=== PATIENT | male | born 1995 | race Caucasian/White ===

== ENCOUNTER 2017-11-13 20:38 | Emergency (ER) | payer SELFPAY ==
[2017-11-13] MEDS: IBUPROFEN 600 MG TABLET. PO ONE (22:30)
[2017-11-13] MEDS: HYDROcodone/APAP 5/325MG 1 TAB TABLET PO ONE (22:30)
[2017-11-13] MEDS ORDERED: IBUP600T16 PO (22:31)
[2017-11-13] MEDS ORDERED: HYDR-971 PO (22:31)
--- NOTE | 2017-11-13 22:31 | PHYS DOC ---
Adult General Chief Complaint Chief Complaint: FOOT INJURY PAIN HPI HPI Patient is a [age] year old [sex] who presents with [] Review of Systems Review of Systems Constitutional: Denies fever or chills [] Eyes: Denies change in visual acuity, redness, or eye pain [] HENT: Denies nasal congestion or sore throat [] Respiratory: Denies cough or shortness of breath [] Cardiovascular: No additional information not addressed in HPI [] GI: Denies abdominal pain, nausea, vomiting, bloody stools or diarrhea [] : Denies dysuria or hematuria [] Musculoskeletal: Denies back pain or joint pain [] Integument: Denies rash or skin lesions [] Neurologic: Denies headache, focal weakness or sensory changes [] Endocrine: Denies polyuria or polydipsia [] All other systems were reviewed and found to be within normal limits, except as documented in this note. Current Medications Current Medications Current Medications Medications (Trade) Dose Ordered Sig/Tegan Start Time Stop Time Status Last Admin Dose Admin Acetaminophen/ Hydrocodone Bitart (Lortab 5/325) 1 tab 1X ONCE 11/13/17 22:30 11/13/17 22:31 Ibuprofen (Motrin) 600 mg 1X ONCE 11/13/17 22:30 11/13/17 22:31 Allergies Allergies Allergies Coded Allergies Type Severity Reaction Last Updated Verified No Known Drug Allergies 11/13/17 No Physical Exam Physical Exam Constitutional: Well developed, well nourished, no acute distress, non-toxic appearance. [] HENT: Normocephalic, atraumatic, bilateral external ears normal, oropharynx moist, no oral exudates, nose normal. [] Eyes: PERRLA, EOMI, conjunctiva normal, no discharge. [] Neck: Normal range of motion, no tenderness, supple, no stridor. [] Cardiovascular:Heart rate regular rhythm, no murmur [] Lungs & Thorax: Bilateral breath sounds clear to auscultation [] Abdomen: Bowel sounds normal, soft, no tenderness, no masses, no pulsatile masses. [] Skin: Warm, dry, no erythema, no rash. [] Back: No tenderness, no CVA tenderness. [] Extremities: No tenderness, no cyanosis, no clubbing, ROM intact, no edema. [] Neurologic: Alert and oriented X 3, normal motor function, normal sensory function, no focal deficits noted. [] Psychologic: Affect normal, judgement normal, mood normal. [] EKG EKG [] Radiology/Procedures Radiology/Procedures [] Course & Med Decision Making Course & Med Decision Making Pertinent Labs and Imaging studies reviewed. (See chart for details) [] Dragon Disclaimer Dragon Disclaimer This electronic medical record was generated, in whole or in part, using a voice recognition dictation system. Departure Departure: Impression: Primary Impression: Fracture of base of fifth metatarsal bone of right foot Disposition: HOME, SELF-CARE Condition: IMPROVED Referrals: PCP,DORCAS (PCP) [facility] Patient Instructions: Crutch Use, Foot Fracture, Metatarsal Fracture with Rehab -[facility] Additional Instructions: You have a fracture at the base of her fifth metatarsal bone. Please call and make an appointment to see from the [facility] orthopedics at [phone]. Please keep your hard sole shoe on at all times while you are not sleeping. No weightbearing. Use crutches. Scripts Hydrocodone Bit/Acetaminophen (NORCO 5-325 TABLET) 1 Each Tablet 1 TAB PO PRN Q6HRS Y for PAIN, #12 TAB 0 Refills Prov: BRENDA ROD MD 11/13/17 Ibuprofen (IBUPROFEN) 600 Mg Tablet 600 MG PO QID Y for PAIN, #20 Prov: BRENDA ROD MD 11/13/17 BRENDA ROD MD Nov 13, 2017 22:31
--- NOTE | 2017-11-14 08:11 | RAD ---
Indication: Football injury. Technique: 3 views of the right foot Comparison: None Findings: There is a complete nondisplaced fracture of the base of the fifth metatarsal ( pseudo-Wilcox fracture) with extension to the articular surface. Impression: As above.
== END 2017-11-13 22:52 | disposition home or self-care (01) ==
LOC: ER 20:38
DX: S92.351A Displaced fracture of fifth metatarsal bone, right foot, initial encounter for closed fracture (principal); X58.XXXA Exposure to other specified factors, initial encounter; Y93.89 Activity, other specified; Y99.8 Other external cause status; Y92.89 Other specified places as the place of occurrence of the external cause
CPT/HCPCS: 73630; 99284

== ENCOUNTER 2017-11-28 15:11 | Emergency (ER) | payer OTHER ==
[~2017-11-28] VITALS: Ht 182.9 cm; Wt 79.4 kg
[~2017-11-28 15:11] MED LIST: HYDR-971 PO; IBUP600T16 PO
[2017-11-28] MEDS ORDERED: IBUPROFEN 800 MG TABLET. PO ONE (16:28)
[2017-11-28] MEDS ORDERED: IBUPROFEN 600 MG TABLET. PO ONE (16:30)
[2017-11-28] MEDS ORDERED: HYDROcodone/APAP 5/325MG 1 TAB TABLET PO ONE (16:30)
--- NOTE | 2017-11-28 16:30 | RAD ---
Right foot, 3 views, 11/28/2017: History: Foot pain, injury Comparison is made to a study from 11/13/2017. Again noted is a transverse fracture of the base of the fifth metatarsal. There has been mild bony resorption at the fracture site. No bridging callus is evident. No new fracture or dislocation is identified. IMPRESSION: Subacute fracture of the base of the right fifth metatarsal. Right ankle, 3 views, 11/28/2017: No new fracture or dislocation is identified. IMPRESSION: No acute right ankle abnormality is detected.
[2017-11-28] MEDS ORDERED: HYDR-971 PO (16:37)
--- NOTE | 2017-11-28 16:37 | PHYS DOC ---
Past History Past Medical History: No Pertinent History Past Surgical History: No Surgical History Alcohol Use: None Drug Use: None Adult General Chief Complaint Chief Complaint: LOWER EXT PAIN HPI HPI Patient is a 22-year-old male presenting to the emergency department for evaluation of right foot pain status post reinjury yesterday when he slipped in some mud on crutches and inverted his right foot now it is more painful. He has bruising to his toes which is old however he has some bruising to his right lateral foot that he says is new. He was diagnosed with a fifth metatarsal fracture several weeks ago but was unable to follow up as he said he cannot afford to see anyone. Patient denies any fevers chills nausea vomiting weakness numbness tingling. Review of Systems Review of Systems Constitutional: Denies fever or chills [] Musculoskeletal: Positive foot joint pain [] Integument: Denies open wounds or abrasions Neurologic: Denies headache, focal weakness or sensory changes [] All other systems were reviewed and found to be within normal limits, except as documented in this note. Current Medications Current Medications Current Medications Medications (Trade) Dose Ordered Sig/Tegan Start Time Stop Time Status Last Admin Dose Admin Acetaminophen/ Hydrocodone Bitart (Lortab 5/325) 2 tab 1X ONCE 11/28/17 16:30 11/28/17 16:31 DC 11/28/17 16:30 2 TAB Ibuprofen (Motrin) 800 mg STK-MED ONCE 11/28/17 16:28 11/28/17 16:29 DC Allergies Allergies Allergies Coded Allergies Type Severity Reaction Last Updated Verified No Known Drug Allergies 11/13/17 No Physical Exam Physical Exam Constitutional: Well developed, well nourished, no acute distress, non-toxic appearance. [] Extremities: Right foot with swelling at the fifth metatarsal and he has some pain on his medial malleolus as well. No proximal tib-fib tenderness. Neurologic: Alert and oriented X 3, normal motor function, normal sensory function, no focal deficits noted. [] Current Patient Data Vital Signs Vital Signs Date Time Temp Pulse Resp B/P (MAP) Pulse Ox O2 Delivery O2 Flow Rate FiO2 11/28/17 16:30 Room Air 11/28/17 15:53 97.6 87 22 98 EKG EKG [] Radiology/Procedures Radiology/Procedures Right foot, 3 views, 11/28/2017: History: Foot pain, injury Comparison is made to a study from 11/13/2017. Again noted is a transverse fracture of the base of the fifth metatarsal. There has been mild bony resorption at the fracture site. No bridging callus is evident. No new fracture or dislocation is identified. IMPRESSION: Subacute fracture of the base of the right fifth metatarsal. Right ankle, 3 views, 11/28/2017: No new fracture or dislocation is identified. IMPRESSION: No acute right ankle abnormality is detected. DICTATED AND SIGNED BY: EDELMIRA IRVIN MD DATE: 11/28/17 1620 Course & Med Decision Making Course & Med Decision Making Patient has no new findings on his x-ray but I recommended that he follow with someone as this does require surgery much of the time. Patient verbalized understanding of the discharge is stable condition. Dragon Disclaimer Dragon Disclaimer This electronic medical record was generated, in whole or in part, using a voice recognition dictation system. Departure Departure: Impression: Primary Impression: Fracture of 5th metatarsal Disposition: HOME, SELF-CARE Condition: STABLE Referrals: PCP,NO (PCP) Patient Instructions: Metatarsal Fracture, Undisplaced Scripts Hydrocodone Bit/Acetaminophen (NORCO 5-325 TABLET) 1 Each Tablet 1 TAB PO PRN Q6HRS Y for PAIN, #10 TAB 0 Refills Prov: OLEG VENEGAS DO 11/28/17 Problem Qualifiers Primary Impression: Fracture of 5th metatarsal Encounter type: initial encounter Fracture type: closed Fracture alignment : nondisplaced Laterality: right Qualified Codes: S92.354A - Nondisplaced fracture of fifth metatarsal bone, right foot, initial encounter for closed fracture OLEG VENEGAS DO Nov 28, 2017 16:37
[2017-11-28 16:42] VITALS: BP 134/61
== END 2017-11-28 16:40 | disposition home or self-care (01) ==
LOC: ER 15:11
DX: S92.351A Displaced fracture of fifth metatarsal bone, right foot, initial encounter for closed fracture (principal); W18.49XA Other slipping, tripping and stumbling without falling, initial encounter; Y93.89 Activity, other specified; Y99.8 Other external cause status; Y92.89 Other specified places as the place of occurrence of the external cause
CPT/HCPCS: 73610; 73630; 99284

== ENCOUNTER 2018-10-09 17:30 | Emergency (ER) | payer SELFPAY ==
[~2018-10-09] VITALS: Ht 190.5 cm; Wt 95.3 kg
[2018-10-09 17:40] VITALS: BP 134/82
[2018-10-09] MEDS ORDERED: NAPR-683 PO (18:29)
[2018-10-09] MEDS ORDERED: CYCL-331 PO (18:29)
--- NOTE | 2018-10-09 18:30 | PHYS DOC ---
Past History Past Medical History: No Pertinent History Past Surgical History: Tonsillectomy Alcohol Use: Occasionally Drug Use: None Adult General Chief Complaint Chief Complaint: BACK PAIN OR INJURY HPI HPI Patient is a 23 year old male who presents with complaint of right shoulder and back pain. Patient states that he was lifting a heavy object at work when he felt a pop in his right shoulder. The patient states that he has been having tightness along the back of his shoulder in the distribution of his trapezius muscle. Patient states that the pain worsens when he tries to move his right upper extremity. Denies any fall or severe trauma. Denies loss of feeling to the right hand. Rates pain as severe. Has not taken any medications for symptoms. Patient states that he has tried ice packs to the affected area. Review of Systems Review of Systems Constitutional: Denies fever or chills [] Eyes: Denies change in visual acuity, redness, or eye pain [] HENT: Denies nasal congestion or sore throat [] Respiratory: Denies cough or shortness of breath [] Cardiovascular: Denies chest pain or edema[] GI: Denies abdominal pain, nausea, vomiting, bloody stools or diarrhea [] : Denies dysuria or hematuria [] Musculoskeletal: Right shoulder and back pain[] Integument: Denies rash or skin lesions [] Neurologic: Denies headache, focal weakness or sensory changes [] All other systems were reviewed and found to be within normal limits, except as documented in this note. Allergies Allergies Allergies Coded Allergies Type Severity Reaction Last Updated Verified No Known Drug Allergies 11/13/17 No Physical Exam Physical Exam Constitutional: Well developed, well nourished, appears in [id number] discomfort, non-toxic appearance. [] HENT: Normocephalic, atraumatic, bilateral external ears normal, oropharynx moist, no oral exudates, nose normal. [] Eyes: PERRLA, EOMI, conjunctiva normal, no discharge. [] Neck: Normal range of motion, no tenderness, supple, no stridor. [] Cardiovascular:Heart rate regular rhythm, no murmur [] Lungs & Thorax: Bilateral breath sounds clear to auscultation [] Abdomen: Bowel sounds normal, soft, no tenderness, no masses, no pulsatile masses. [] Skin: Warm, dry, no erythema, no rash. [] Back: No tenderness, no CVA tenderness. [] Extremities: Right posterior shoulder tenderness along distribution of right trapezius muscle, no deformity or bony tenderness to the right shoulder, no cyanosis, no clubbing, ROM in right shoulder limited secondary pain, neurovascularly intact distal to injury. [] Neurologic: Alert and oriented X 3, normal motor function, normal sensory function, no focal deficits noted. [] Current Patient Data Vital Signs Vital Signs Date Time Temp Pulse Resp B/P (MAP) Pulse Ox O2 Delivery O2 Flow Rate FiO2 10/09/18 17:40 98.4 89 22 96 Room Air Lab Results None performed EKG EKG Not performed[] Radiology/Procedures Radiology/Procedures Not performed[] Course & Med Decision Making Course & Med Decision Making Pertinent Labs and Imaging studies reviewed. (See chart for details) Patient's injury consistent with right trapezius muscle strain. Patient treated with Naprosyn and Flexeril. The patient was instructed to follow-up with primary doctor in the next 5 days for reevaluation. Advised no heavy lifting greater than 5 pounds with right upper extremity until symptoms have improved. Will continue on outpatient treatment with Flexeril and Naprosyn. Advised return to emergency department for any worsening symptoms. Patient was understanding and agreement with treatment plan. Dragon Disclaimer Dragon Disclaimer This electronic medical record was generated, in whole or in part, using a voice recognition dictation system. Departure Departure: Impression: Primary Impression: Strain of right trapezius muscle Disposition: HOME, SELF-CARE Condition: IMPROVED Referrals: PCP,DORCAS (PCP) Patient Instructions: Muscle Strain Additional Instructions: Follow-up with a primary doctor in the next 5 days for reevaluation. Follow up with a primary doctor in the next 5 days for reevaluation. Return to the emergency department for any worsening symptoms. Scripts Naproxen (NAPROSYN) 500 Mg Tablet 1 TAB PO BID, #20 TAB 0 Refills Prov: CARROLL SCHWARTZ MD 10/09/18 Cyclobenzaprine Hcl (CYCLOBENZAPRINE HCL) 10 Mg Tablet 1 TAB PO TID PRN for MUSCLE PAIN, #30 TAB Prov: CARROLL SCHWARTZ MD 10/09/18 Problem Qualifiers Primary Impression: Strain of right trapezius muscle Encounter type: initial encounter Qualified Codes: S46.811A - Strain of other muscles, fascia and tendons at shoulder and upper arm level, right arm, initial encounter CARROLL SCHWARTZ MD Oct 09, 2018 18:30
[2018-10-09] MEDS ORDERED: CYCLOBENZAPRINE 10 MG TABLET. PO ONE (18:45)
[2018-10-09] MEDS ORDERED: NAPROXEN 500 MG TABLET PO ONE (18:45)
== END 2018-10-09 18:40 | disposition home or self-care (01) ==
LOC: ER 17:30
DX: S46.811A Strain of other muscles, fascia and tendons at shoulder and upper arm level, right arm, initial encounter (principal); M54.89 Other dorsalgia; X50.0XXA Overexertion from strenuous movement or load, initial encounter; Y93.89 Activity, other specified; Y92.89 Other specified places as the place of occurrence of the external cause; Y99.8 Other external cause status
CPT/HCPCS: 99283

== ENCOUNTER 2020-08-11 20:38 | Emergency (ER) | payer SELFPAY ==
[~2020-08-11] VITALS: Ht 190.5 cm; Wt 90.9 kg
[~2020-08-11 20:38] MED LIST changes: +CYCL-331 PO; +HYDR-3165 PO; -HYDR-971 PO; +NAPR-683 PO
--- NOTE | 2020-08-11 21:03 | PHYS DOC ---
Past History Past Medical History: No Pertinent History Past Surgical History: Tonsillectomy Alcohol Use: Occasionally Drug Use: None General Adult EDM: Chief Complaint: SUICIDAL IDEATION HPI: HPI: The history was obtained from the patient. Patient is a 25-year-old male with no reported PMH who presents with a chief complaint of suicidal ideation. Patient states he has felt intermittently suicidal since he was 16 years old. He states that this evening his caught him sitting in his car with a gun .. He states he does this intermittently but is never followed through. He denies any acute stressors recently does states that he has felt depressed. He states that he has no homicidal ideation. Denies auditory visual hallucinations. Denies any hospitalization for mental health issues in the past. Denies any drug or alcohol abuse. Denies any physical related complaints. Denies any ingestions this evening. States that he came here because his called his mother who encouraged him to report to the emergency department. No other complaints. Review of Systems: Review of Systems: Constitutional: Denies fever or chills Eyes: Denies change in visual acuity HENT: Denies nasal congestion or sore throat Respiratory: Denies cough or shortness of breath Cardiovascular: Denies chest pain or edema GI: Denies abdominal pain, nausea, vomiting, bloody stools or diarrhea : Denies dysuria Musculoskeletal: Denies back pain or joint pain Integument: Denies rash Neurologic: Denies headache, focal weakness or sensory changes Endocrine: Denies polyuria or polydipsia Lymphatic: Denies swollen glands Psychiatric: Positive for depression Heart Score: Risk Factors: Risk Factors: DM, Current or recent (<one month) smoker, HTN, HLP, family history of CAD, obesity. Risk Scores: Score 0 - 3: 2.5% MACE over next 6 weeks - Discharge Home Score 4 - 6: 20.3% MACE over next 6 weeks - Admit for Clinical Observation Score 7 - 10: 72.7% MACE over next 6 weeks - Early Invasive Strategies Allergies: Allergies: Allergies Coded Allergies Type Severity Reaction Last Updated Verified No Known Drug Allergies 11/13/17 No Physical Exam: PE: Constitutional: Well developed, well nourished, no acute distress, non-toxic appearance. [] HENT: Normocephalic, atraumatic, bilateral external ears normal, oropharynx moist, no oral exudates, nose normal. [] Eyes: PERRLA, EOMI, conjunctiva normal, no discharge. [] Neck: Normal range of motion, no tenderness, supple, no stridor. [] Cardiovascular:Heart rate regular rhythm, no murmur [] Lungs & Thorax: Bilateral breath sounds clear to auscultation [] Abdomen: Bowel sounds normal, soft, no tenderness, no masses, no pulsatile masses. [] Skin: Warm, dry, no erythema, no rash. [] Back: No tenderness, no CVA tenderness. [] Extremities: No tenderness, no cyanosis, no clubbing, ROM intact, no edema. [] Neurologic: A alert with intact cognitive function. No aphasia, dysarthria, or neglect. GCS 15. Pupils 3 mm briskly reactive b/l. No APD present. Cranial nerves 2-12 grossly intact; no facial asymmetry present, tongue midline, shoulder shrugging strength intact. Strength 5/5 and symmetric throughout. Light touch sensation intact throughout. Cerebellar testing appropriate without evidence of dysdiadochokinesia. DTR's 2+ in all 4 extremities. Negative pronator drift bilaterally. Gait normal Psychologic: Tearful and depressed affect. Current Patient Data: Labs: Laboratory Tests Test 08/11/20 21:15 08/11/20 23:23 White Blood Count 8.4 x10^3/uL Red Blood Count 5.09 x10^6/uL Hemoglobin 15.5 g/dL Hematocrit 45.3 % Mean Corpuscular Volume 89 fL Mean Corpuscular Hemoglobin 30 pg Mean Corpuscular Hemoglobin Concent 34 g/dL Red Cell Distribution Width 13.3 % Platelet Count 211 x10^3/uL Neutrophils (%) (Auto) 70 % Lymphocytes (%) (Auto) 22 % Monocytes (%) (Auto) 6 % Eosinophils (%) (Auto) 1 % Basophils (%) (Auto) 1 % Neutrophils # (Auto) 5.9 x10^3uL Lymphocytes # (Auto) 1.8 x10^3/uL Monocytes # (Auto) 0.5 x10^3/uL Eosinophils # (Auto) 0.1 x10^3/uL Basophils # (Auto) 0.1 x10^3/uL Sodium Level 140 mmol/L Potassium Level 3.6 mmol/L Chloride Level 105 mmol/L Carbon Dioxide Level 25 mmol/L Anion Gap 10 Blood Urea Nitrogen 13 mg/dL Creatinine 1.1 mg/dL Estimated GFR (Cockcroft-Gault) 83.0 BUN/Creatinine Ratio 12 Glucose Level 89 mg/dL Calcium Level 9.5 mg/dL Total Bilirubin 0.7 mg/dL Aspartate Amino Transf (AST/SGOT) 22 U/L Alanine Aminotransferase (ALT/SGPT) 39 U/L Alkaline Phosphatase 68 U/L Total Protein 7.5 g/dL Albumin 4.6 g/dL Albumin/Globulin Ratio 1.6 Acetaminophen Level < 2.0 mcg/mL Acetaminophen Last Dose Date None Acetaminophen Last Dose Time None Ethyl Alcohol Level < 10 mg/dL Urine Collection Type Unknown Urine Color Yellow Urine Clarity Clear Urine pH 5.5 Urine Specific [place] >=1.030 Urine Protein Neg Urine Glucose (UA) Neg mg/dL Urine Ketones (Stick) 40 mg/dL Urine Blood Neg Urine Nitrite Neg Urine Bilirubin Neg Urine Urobilinogen Dipstick 0.2 mg/dL Urine Leukocyte Esterase Neg Urine RBC 0 /HPF Urine WBC Occ /HPF Urine Squamous Epithelial Cells None /LPF Urine Bacteria 0 /HPF Urine Mucus Mod /LPF Urine Opiates Screen Neg Urine Methadone Screen Neg Urine Barbiturates Neg Urine Phencyclidine Screen Neg Urine Amphetamine/Methamphetamine Neg Urine Benzodiazepines Screen Neg Urine Cocaine Screen Neg Urine Cannabinoids Screen Pos Urine Ethyl Alcohol Neg Current Medications Medications (Trade) Dose Ordered Sig/Tegan Route PRN Reason Start Time Stop Time Status Last Admin Dose Admin Lorazepam (Ativan) 2 mg 1X ONCE PO 08/11/20 21:15 08/11/20 21:16 DC Sodium Chloride 1,000 ml @ 1,000 mls/hr 1X ONCE IV 08/11/20 22:00 08/11/20 22:59 DC Lorazepam (Ativan) 1 mg 1X ONCE PO 08/11/20 22:00 08/11/20 22:01 DC Vital Signs: Vital Signs Date Time Temp Pulse Resp B/P (MAP) Pulse Ox O2 Delivery O2 Flow Rate FiO2 08/11/20 20:40 97.5 66 18 126/86 (99) 97 Room Air EKG: EKG: [] EKG consistent with normal sinus rhythm. Ventricular rate of 51 bpm. [place] normal. Intervals normal. Flattened T wave in lead III. No acute ischemic changes noted. Radiology/Procedures: Radiology/Procedures: [] Course & Med Decision Making: Course & Med Decision Making Pertinent Labs and Imaging studies reviewed. (See chart for details) [] Patient is a 25-year-old male who presents with chief complaint of suicidal ideation and depressive thoughts. Upon arrival the patient was quite tearful and depressed. Basic work-up was obtained was unremarkable. Patient was evaluated by guidance center regarding his suicidal ideation. After lengthy conversation they do feel the patient is appropriate for discharge home with safety planning. The patient's mother did go to his house and remove all firearms. The patient's mother and will watch him closely as well. He does have outpatient counseling services arranged for tomorrow. Also multiple individuals with a [facility] will check on him tomorrow. Repeat examination is no longer tearful. He was cooperative during the interview per the guidance counselor. I do feel it is reasonable to discharge patient home with safety planning and close monitoring. Patient tells me he no longer has thoughts with harming self and states that he does have reasons to live for including his family and daughter. Return precautions discussed and understood. Stable for discharge home. Aubrie Disclaimer: Aubrie Disclaimer: This electronic medical record was generated, in whole or in part, using a voice recognition dictation system. Departure Departure: Impression: Primary Impression: Suicidal ideation Disposition: HOME/RESIDENCE PRIOR TO ADM Condition: STABLE Referrals: PCP,NO (PCP) Patient Instructions: Suicidal Feelings, How to Help Yourself Additional Instructions: Please follow-up with [facility] counseling tomorrow. Please return the emergency department immediately should you have any further suicidal thoughts. Justification of Admission: Justification of Admission: Justification of Admission Dx: N/A EVERTON AKINS DO Aug 11, 2020 21:03
[2020-08-11] MEDS ORDERED: LORazepam 1 MG TABLET PO ONE ×2 (21:15→22:00)
[2020-08-11 21:43] LABS: BASO # 0.1 x10^3/uL (0.0-0.2); BASO % 1 % (0-3); EOS # 0.1 x10^3/uL (0.0-0.7); EOS % 1 % (0-3); HEMATOCRIT 45.3 % (39.0-53.0); HEMOGLOBIN 15.5 g/dL (13.0-17.5); LYMPH # 1.8 x10^3/uL (1.0-4.8); LYMPH % 22 % (24-48); MEAN CORPUSCULAR HEMOGLOBIN 30 pg (25-35); MEAN CORPUSCULAR HGB CONC 34 g/dL (31-37); MEAN CORPUSCULAR VOLUME 89 fL (79-100); MONO # 0.5 x10^3/uL (0.0-1.1); MONO % 6 % (0-9); NEUT # 5.9 x10^3uL (1.8-7.7); NEUT % 70 % (31-73); PLATELET COUNT 211 x10^3/uL (140-400); RED BLOOD COUNT 5.09 x10^6/uL (4.30-5.70); RED CELL DISTRIBUTION WIDTH 13.3 % (11.5-14.5); WHITE BLOOD COUNT 8.4 x10^3/uL (4.0-11.0)
[2020-08-11] MEDS ORDERED: IV NORMAL SALINE 1,000ML 1,000 ML IV ONE (22:00)
[2020-08-11 22:29] LABS: ACETAMIN < 2.0 mcg/mL (10-30); ETHANOL < 10 mg/dL (0-10)
[2020-08-11 23:20] LABS: CALCIUM 9.5 mg/dL (8.5-10.1); CREATININE 1.1 mg/dL (0.7-1.3); POTASSIUM 3.6 mmol/L (3.5-5.1)
[2020-08-11 23:26] LABS: ALBUMIN 4.6 g/dL (3.4-5.0); ALBUMIN/GLOBULIN RATIO 1.6 (1.0-1.7); TOTAL BILIRUBIN 0.7 mg/dL (0.2-1.0); TOTAL PROTEIN 7.5 g/dL (6.4-8.2)
[2020-08-12 00:10] LABS: BARBITURATES NEG (NEG); BENZODIAZEPINES NEG (NEG); CANNABINOIDS POS (NEG); COCAINE NEG (NEG); METHADONE NEG (NEG); OPIATES NEG (NEG); PHENCYCLIDINE NEG (NEG)
[2020-08-12 00:21] LABS: AMPHETAMINE/METHAMPHETAMINE NEG (NEG)
[2020-08-12 00:31] LABS: BACTERIA,URINE 0 /HPF (0-FEW); BILIRUBIN,URINE NEG (NEG); CLARITY,URINE CLEAR; COLOR,URINE YELLOW; GLUCOSE,URINE NEG (NEG); NITRITE,URINE NEG (NEG); RBC,URINE 0 /HPF (0-2); UROBILINOGEN,URINE 0.2 mg/dL (0.2 mg/dL); WBC,URINE OCC /HPF (0-4)
[2020-08-12 01:55] VITALS: BP 150/90
--- NOTE | 2020-08-13 07:27 | EKG ---
[address] [address] Test Date: 2020-08-11 Test Time: 22:15:20 Pat Name: SLY MARTINEZ Department: Room: Gender: M Cumulative Effects Analyst: : 1995 Requested By: EVERTON AKINS Order Number: [id number] Reading MD: Measurements Intervals [place] Rate: 51 P: 34 [place]: 154 QRS: 62 QRSD: 102 T: 31 QT: 394 QTc: 365 Interpretive Statements SINUS RHYTHM NORMAL ECG RI6.02 No previous ECG available for comparison
== END 2020-08-12 01:55 | disposition home or self-care (01) ==
LOC: ER 20:38
DX: R45.851 Suicidal ideations (principal); F32.9 Major depressive disorder, single episode, unspecified
CPT/HCPCS: 36415; 80053; 80307; 80329; 81001; 85025; 93005; 96360; 99285; G0480; J7030

== ENCOUNTER 2020-09-13 23:19 | Emergency (ER) | payer SELFPAY ==
[~2020-09-13] VITALS: Ht 190.5 cm; Wt 91.0 kg
[2020-09-14 00:31] VITALS: BP 143/74
--- NOTE | 2020-09-14 00:35 | PHYS DOC ---
Past History Past Medical History: No Pertinent History Past Surgical History: Tonsillectomy Alcohol Use: Rarely Drug Use: None Adult General Chief Complaint Chief Complaint: COUGH HPI HPI Patient is a healthy 25-year-old male who presents for URI-like symptoms. Onset of symptomology was 4 days ago. Nothing known makes better or worse. Patient denies any pain but admits feelings of generalized fatigue and malaise, rhinorrhea, mild sore throat, and a nonproductive cough. Patient presented to work this evening when screened was found to be febrile at 101.3. Because of this, patient was immediately redirected to our ER for formal evaluation. He is not febrile on our evaluation, he has not taken anything for said fever, patient admits wearing beanie throughout evening and prior to getting temporal temperature. 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 See HPI for pertinent positives and negative responses, other griffith all other systems are negative, non-pertinent or non-contributory Allergies Allergies Allergies Coded Allergies Type Severity Reaction Last Updated Verified No Known Drug Allergies 09/13/20 No Physical Exam Physical Exam Constitutional: Well developed, well nourished, no acute distress, non-toxic appearance. [] HENT: Normocephalic, atraumatic, bilateral external ears normal, oropharynx moist, no oral exudates, nose normal. [] Eyes: PERRLA, EOMI, conjunctiva normal, no discharge. [] Neck: Normal range of motion, no tenderness, supple, no stridor. [] Cardiovascular:Heart rate regular rhythm, no murmur [] Lungs & Thorax: Bilateral breath sounds clear to auscultation [] Abdomen: Bowel sounds normal, soft, no tenderness, no masses, no pulsatile masses. [] Skin: Warm, dry, no erythema, no rash. [] Back: No tenderness, no CVA tenderness. [] Extremities: No tenderness, no cyanosis, no clubbing, ROM intact, no edema. [] Neurologic: Alert and oriented X 3, normal motor function, normal sensory fun ction, no focal deficits noted. [] Psychologic: Affect normal, judgement normal, mood normal. [] Current Patient Data Vital Signs Vital Signs Date Time Temp Pulse Resp B/P (MAP) Pulse Ox O2 Delivery O2 Flow Rate FiO2 09/13/20 23:28 98.3 69 28 113/85 (94) 99 Room Air EKG EKG EKG ordered and interpreted by myself at 003 4 hours as sinus rhythm at 63 bpm, unremarkable intervals, no axis deviation, no acute ischemic findings, no STEMI Radiology/Procedures Radiology/Procedures PROCEDURE: PORTABLE CHEST 1V AP chest. HISTORY: Short of breath AP view was taken of the chest. There is no pneumothorax or pleural effusion. Heart is normal in size. IMPRESSION: 1. No acute chest disease. Electronically signed by: Robert Pascual MD (09/14/2020 12:43 AM) [id number] Course & Med Decision Making Course & Med Decision Making Grossly well-appearing ambulatory patient seen on immediate ER arrival ABCs grossly nonconcerning Comprehensive history and physical exam obtained, subsequent diagnostic work-up ordered and reviewed I discussed most likely diagnosis of viral syndrome versus COVID-19 infection I did disclose this might be an acute presentation of more concerning pathology but at present, no further indication for continued ER diagnostic work-up I discussed role of supportive care and self quarantining until our Covid results, patient amenable to this plan of care Strict return precautions were discussed with good understanding by patient, all questions and concerns addressed prior to ER departure in stable condition Dragon Disclaimer Dragon Disclaimer This electronic medical record was generated, in whole or in part, using a voice recognition dictation system. Departure Departure: Impression: Primary Impression: Viral syndrome Additional Impression: Person under investigation for COVID-19 Disposition: 01 DC HOME SELF CARE/HOMELESS Condition: STABLE Referrals: PCP,NO (PCP) Patient Instructions: Viral Syndrome Additional Instructions: You were evaluated in the Emergency Department today for a cough. Your evaluation suggests a viral infection such as Coronavirus. It is important that you continue to self isolate and practice good hygiene at home. Please follow up with your primary care physician as discussed. Return to the Emergency Department if you experience worsening cough, fever, shortness of breath, recurrent vomiting, lethargy, or any other concerning symptoms. Thank you for choosing us for your care. Home Care Instructions for Patients with Mild Respiratory Infection Most people with respiratory infections like colds, the flu, and Coronavirus Disease (COVID-19) will have mild illness and can get better with appropriate home care and without the need to see a provider. People who are elderly, , or have a weak immune system, or other medical problem are at higher risk of more serious illness or complications. It is recommended that they caref ully monitor their symptoms closely and seek medical care early if their symptoms get worse. Treatment There is no specific treatment for most viruses including those that that cause the common cold and those that cause COVID-19. Sometimes there is treatment for the viruses that cause influenza if given early. Antibiotics treat infections caused by bacteria, but they do not work against viruses.Most people recover on their own from these viruses, including COVID-19. Here are steps that you can take to help you get better: Rest Drink plenty of fluids Take mmgv-bgp-hbdlbkp cold and flu medications to reduce fever and pain. Foll ow the instructions on the package, unless your doctor gave you instructions. Note that these medicines do not ``cure the illness and therefore do not stop you from spreading germs. Children should not be given medication that contains aspirin (acetylsalicylic acid) because it can cause a rare but serious illness called Jassi syndrome. Medicines without aspirin include acetaminophen (Tylenol) and ibuprofen (Advil, Motrin). Children younger than age 2 should not be given any wwvo-fce-irscalq cold medications without first speaking with a doctor.Seeking Medical Care You should seek medical care if you are not getting better within a week, or if your symptoms get worse. If you are elderly, , have a weak immune system, or other medical problems, call your doctor right away. It is best to call ahead of time to discuss your symptoms, if possible. This may allow you to receive the advice you need by phone. By avoiding a visit to a healthcare facility, you protect yourself from getting a new infection and protect others from catching an infection from you. If you do visit a healthcare facility, put on a mask to protect other patients and staff. It is recommended that you seek medical care for serious symptoms, such as: People with potentially life-threatening symptoms should call 911. If possible, put on a facemask before emergency medical services arrive.PROTECTING OTHERS Follow the steps below to help prevent the disease from spreading to people in your home and community.Stay home when you are sick Stay home - do not go to work, school, or public areas. Stay home for at least 24 hours after your symptoms have gone away without the use of fever-reducing medicines. If you must leave home while you are sick, try to avoid using public transportation, ride-shares, and taxis. Wear a mask if possible. Separate yourself from other people and animals in your home Stay in a specific room and away from other people in your home as much as possible. Use a separate bathroom, if available. Try to stay at least 6 feet from others. Do not handle pets or other animals while you are sick. Cover your coughs and sneezes Cover your mouth and nose with a tissue when you cough or sneeze. Throw used tissues in a lined trash can; immediately wash your hands. Avoid sharing personal household items Do not share dishes, drinking glasses, cups, eating utensils, towels, or bedding with other people or pets in your home. Wash them thoroughly with soap and water after use. Clean your hands often Wash your hands often with soap and water for at least 20 seconds. If soap and water are not available, clean your hands with an alcohol-based hand refinery technician that contains at least 60% alcohol, covering all surfaces of your hands and rubbing them together until they feel dry. Use soap and water if your hands are visibly dirty. Clean all ``high-touch surfaces every day High touch surfaces include counters, tabletops, doorknobs, bathroom fixtures, toilets, phones, keyboards, tablets, and bedside tables. Also, clean any surfa mayra that may have body fluids on them. Use a household cleaning spray or wipe, according to the product label instructions. COVID-19 (Novel Coronavirus) FAQs for Inquiring Patients What do you do if you are worried that you have been exposed to COVID-19 but are without any symptoms? If you develop symptoms that may indicate an infection, contact your physician. These include fever, cough, and shortness of breath. Testing is not available for asymptomatic individuals, regardless of travel history. To reduce the chance of getting sick use general infection prevention measures such as hand washing, covering your mouth and nose when you cough or sneeze and discarding any tissues carefully, and staying home when you are sick.Can exceptions be made for patients who are really worried and want to be tested? Presently testing is only available through the [facility] Department of Public Health and Centers for Disease Control and Prevention. Only patients who meet the updated COVID-19 PUI definition may be tested. We do not control or set the PUI definition or evaluation criteria. We are unable to provide testing to patients who do not meet the strict criteria. Should patients cancel or postpone an upcoming trip? The decision about travel is personal and should be made in the context of a persons underlying health conditions, reason for travel and necessity of travel. Travel insurance generally does not cover cancellations due to concerns of infectious disease outbreaks. The Center for Disease Control has a section on travel notices. Situations are changing frequently and you should monitor the site for updates. Should situations change rapidly in a foreign country while they are traveling, you could be subject to quarantine or restrictions upon return to the [place]. It is best to have a plan on how to return urgently if needed during a trip abroad. Because of how air circulates and is filtered on airplanes, most viruses do not spread easily on airplanes. CDC does not recommend use of facemasks during air travel.What other general precautions are advised? Patients should be instructed to: Avoid close contact with people who are sick. Avoid touching your eyes, nose and mouth. Stay home from work or school when they are sick. If you have a fever, you should remain home until 24 hours after fever resolves. Clean and disinfect frequently touched objects and surfaces using a regular guzman sehold cleaning spray or wipe. Sneeze/cough into their elbow, not your hand. Practice frequent hand hygiene with soap and water (at least 20 seconds) or alcohol-based hand rub. Consider avoiding crowded places or mass gatherings, especially if you are immu nocompromised or have chronic lung disease. There is no evidence to support transmission of COVID-19 from goods imported from [place]. Are there any special precautions that are recommended if I am ? There is not yet any information available about the susceptibility of women to COVID-19. As a general rule, women may be more susceptible to viral respiratory infections and at risk for more severe illness. The CDC guidance for COVID-19 and has answers to questions about trans mission during delivery, as well as other situations. Should food, water, or medications be stockpiled? Should people telecommute? The CDC has excellent information on this. Please visit the CDCs guidance for getting your household ready for COVID-19. What should I do if I start feeling sick at work? And what should the workplace do for anyone exposed? Anyone who is sick with a fever and cough should stay home from work until at least 24 hours after resolution of fever, regardless of concerns for COVID-19. It is still influenza (flu) season and influenza remains far more common. Problem Qualifiers MACEY DOWLING DO Sep 14, 2020 00:35
--- NOTE | 2020-09-14 00:45 | RAD ---
AP chest. HISTORY: Short of breath AP view was taken of the chest. There is no pneumothorax or pleural effusion. Heart is normal in size. IMPRESSION: 1. No acute chest disease. Electronically signed by: Robert Pascual MD (09/14/2020 12:43 AM) [id number]
--- NOTE | 2020-09-15 13:34 | NUR ---
IP: attempt to notify patient of COVID result, left call back message.
--- NOTE | 2020-09-15 15:06 | NUR ---
IP: notified patient of COVID result.
== END 2020-09-14 01:08 | disposition home or self-care (01) ==
LOC: ER 23:19
DX: B34.9 Viral infection, unspecified (principal); Z20.828 Contact with and (suspected) exposure to other viral communicable diseases
CPT/HCPCS: 71045; 99284; C9803; U0003

== ENCOUNTER 2021-05-03 15:29 | Emergency (ER) | payer SELFPAY ==
[~2021-05-03] VITALS: Ht 190.5 cm; Wt 91.3 kg
[2021-05-03] MEDS ORDERED: IBUPROFEN 600 MG TABLET. PO ONE (16:15)
--- NOTE | 2021-05-03 16:23 | RAD ---
Exam: Left hand 3 views INDICATION: Hyperextension injury TECHNIQUE: Frontal, lateral and oblique views of the left hand Comparisons: None FINDINGS: There is a obliquely oriented fracture through the fifth metacarpal which is minimally displaced. Yuliet nt spaces are well-maintained. Soft tissues are unremarkable. Bone mineralization is normal. IMPRESSION: Obliquely oriented fracture to the fifth metacarpal which is minimally displaced. Electronically signed by: Jade Fuentes MD (05/03/2021 4:21 PM) [facility]
[2021-05-03] MEDS ORDERED: HYDR-2155 PO (17:16)
[2021-05-03] MEDS ORDERED: IBUP600T16 PO (17:16)
--- NOTE | 2021-05-03 17:18 | PHYS DOC ---
Past History Past Medical History: No Pertinent History (YOBANI LEWIS APRN) Past Surgical History: Tonsillectomy (YOBANI LEWIS APRN) Alcohol Use: Heavy Drug Use: None (YOBANI LEWIS APRN) Adult General Chief Complaint Chief Complaint: WRIST PAIN HPI HPI Patient is a 26-year-old male who presents emergency department complaining of left hand pain reporting he was playing basketball at approximately 1330 today when he and another player were going after the ball and the other players hand struck his left pinky finger and bent it sideways in which she heard a snap in his hand. Patient states he came to the emergency department because of the pain. Patient did not take any pain medication or apply any ice packs to his hand prior to arrival to the ER. Patient denies allergies to medications, denies taking prescription medications at home, states he had his tonsils surgically removed when he was a young child, patient has no primary care physician. Patient denies any other physical complaints or physical concerns. (YOBANI LEWIS APRN) Review of Systems Review of Systems 14 body systems of review of systems have been reviewed. See HPI for pertinent positives and negative responses, otherwise all other systems are negative, nonpertinent or noncontributory. (YOBANI LEWIS APRN) Current Medications Current Medications Current Medications Medications (Trade) Dose Ordered Sig/Tegan Start Time Stop Time Status Last Admin Dose Admin Ibuprofen (Motrin) 600 mg 1X ONCE 05/03/21 16:15 05/03/21 16:16 DC 05/03/21 16:31 600 MG (YOBANI LEWIS APRN) Allergies Allergies Allergies Coded Allergies Type Severity Reaction Last Updated Verified No Known Drug Allergies 09/13/20 No (YOBANI LEWIS APRN) Physical Exam Physical Exam Constitutional: Well developed, well nourished, no acute distress, non-toxic appearance. 26-year-old male in no apparent distress holding his left hand. HENT: Normocephalic, atraumatic. Eyes:conjunctiva normal, no discharge. Neck: Normal range of motion. Cardiovascular: No cyanosis appreciated, distal cap refill less than 2 seconds. Lungs & Thorax: No adventitious lung sounds appreciated audibly, the patient is in no respiratory distress. Skin: Warm, dry, no erythema, no rash. Back: No tenderness. Extremities: No tenderness, no cyanosis, no clubbing, ROM intact, no edema. Except for left hand, swelling to the fifth metacarpal area without deformity appreciated, skin is intact, limited passive range of motion of wrist and pinky finger related to pain from injury, digits 1 through 4 full AROM/PROM, distal cap refills less than 2 seconds, +2 radial pulse. Neurologic: Alert and oriented X 3, normal motor function, normal sensory function, no focal deficits noted. Psychologic: Affect normal, judgement normal, mood normal. (YOBANI LEWIS APRN) Current Patient Data Vital Signs Vital Signs Date Time Temp Pulse Resp B/P (MAP) Pulse Ox O2 Delivery O2 Flow Rate FiO2 05/03/21 15:55 97.9 78 20 123/73 (90) 98 Room Air (YOBANI LEWIS APRN) EKG EKG [] (YOBANI LEWIS APRN) Radiology/Procedures Radiology/Procedures PATIENT: SLY MARTINEZ MACCOUNT: [id number] : 1995 LOCATION: ER AGE: 26 SEX: M EXAM STATUS: REG ER ORD. PHYSICIAN: YOBANI LEWIS APRN REASON: HYPEREXTENSION INJURY PROCEDURE: HAND LEFT 3V Exam: Left hand 3 views INDICATION: Hyperextension injury TECHNIQUE: Frontal, lateral and oblique views of the left hand Comparisons: None FINDINGS: There is a obliquely oriented fracture through the fifth metacarpal which is minimally displaced. Joint spaces are well-maintained. Soft tissues are unremarkable. Bone mineralization is normal. IMPRESSION: Obliquely oriented fracture to the fifth metacarpal which is minimally displaced. Electronically signed by: Jade Carrillo MD (05/03/2021 4:21 PM) [facility] DICTATED AND SIGNED BY: JADE CARRILLO MD DATE: 05/03/211616 CC: YOBANI LEWIS APRN; EMERGENCY,DEPARTMENT; PCP,NO ~MTH0 0 (YOBANI LEWIS APRN) Heart Score C/O Chest Pain: No Risk Factors: Risk Factors: DM, Current or recent (<one month) smoker, HTN, HLP, family history of CAD, obesity. Risk Scores: Risk Factors: DM, Current or recent (<one month) smoker, HTN, HLP, family history of CAD, obesity. (YOBANI LEWIS APRN) Course & Med Decision Making Course & Med Decision Making Pertinent Labs and Imaging studies reviewed. (See chart for details) 26-year-old male, vital signs reviewed, presents emergency department concerning left hand pain after injuring it playing basketball today at approximately 1330. Physical examination concerning for bony injury, consistent with boxer's fracture however no abrasion of the knuckles appreciated. Patient was given a 600 mg tablet for 5/10 pain. X-ray imaging ordered. X-ray interpretation by house radiologist showed minimally displaced fifth metacarpal fracture, upon reevaluation of the patient, discussed with patient findings, will place ulnar gutter splint, ice applications, prescription for [place] and ibuprofen, sling application as needed for comfort, strict follow-up with orthopedic surgeon call tomorrow for appointment, will give patient a primary care follow-up physician to consider following up with. Patient gave verbal understanding discharge home instructions, medication use, splint care, follow-up with orthopedic surgeon will call tomorrow, return to ER precautions or concerns, patient had no further questions or concerns, patient was discharged home without incident. Splint application by ED sprayer hand, upon reevaluation of splint application, splint applied satisfactorily, patient remains neurovascular intact at time of discharge. (YOBANI LEWIS APRN) Dragon Disclaimer Dragon Disclaimer This electronic medical record was generated, in whole or in part, using a voice recognition dictation system. (YOBANI LEWIS APRN) Attending Co-Sign The patient was seen and interviewed as well as examined at the bedside. The chart was reviewed. The case was discussed. Agree with the plan of care. (MELLISSA RICHARDSON DO) Departure Departure: Impression: Primary Impression: Fracture of fifth metacarpal bone of left hand Disposition: 01 HOME / SELF CARE / HOMELESS Condition: GOOD Referrals: PCP,DORCAS (PCP) GARRET IBARRA JOHN N MD Patient Instructions: Boxer's Fracture Additional Instructions: You're seen today in the emergency department for a left hand injury, as we discussed you have a broken bone in your hand, the therapy for this is the splint that we applied, please follow-up with an orthopedic surgeon tomorrow, I have provided you with Dr. Powell, you may see anybody in the neck group it does not necessarily have to be that particular orthopedic surgeon, I have also provided you with a suggestion for primary care SWATHI Regalado, you may choose any primary care provider you wish. Please use ice applications and elevate as we discussed, do not get your splint wet. Please return to the emergency department for worsening symptoms or other concerns. EMERGENCY DEPARTMENT GENERAL DISCHARGE INSTRUCTIONS Thank you for coming to [facility] (ED) today and trusting us with you care. We trust that you had a positivie experience in our Emergency Department. If you wish to speak to the department management, you may call the director at [phone]. YOUR FOLLOW UP INSTRUCTIONS ARE FOLLOWS: 1. Do you have a private Doctor? If you do not have a private doctor, please ask for a resource list of physicians or clinics that may be able to assist you with follow up care. 2. The Emergency Physician has interpreted your x-rays. The X-Ray specialist will also review them. If there is a change in the findings, you will be notified in 48 hours when at all possible. 3. A lab test or culture has been done, your results will be reviewed and you will be notified if you need a change in treatment. ADDITIONAL INSTRUCTIONS AND INFORMATION: 1. Your care today has been supervised by a physician who is specially trained in emergency care. Many problems require more than one evaluation for a complete diagnosis and treatment. We recommend that you schedule your follow up appointment as recommended to ensure complete treatment of you illness or injury. If you are unable to obtain follow up care and continue to have a problem, or if your condition worsens, we recommend that you return to the ED. 2. We are not able to safely determine your condition over the phone nor are we able to give sound medical advice over the phone. For these safety reasons, if you call for medical advice we will ask you to come to the ED for further evaluation. 3. If you have any questions regarding these discharge instructions please call the ED at [phone]. SAFETY INFORMATION: In the interest of safety, wellness, and injury prevention; we encourage you to wear your sealbelt, if you smoke; quite smoking, and we encourage family to use a protective helmet for bicycling and other sporting events that present an increased risk for head injury. IF YOUR SYMPTOMS WORSEN OR NEW SYMPTOMS DEVELOP, OR YOU HAVE CONCERNS ABOUT YOUR CONDITION; OR IF YOUR CONDITION WORSENS WHILE YOU ARE WAITING FOR YOUR FOLLOW UP APPOINTMENT; EITHER CONTACT YOUR PRIMARY CARE DOCTOR, THE PHYSICIAN WHOSE NAME AND NUMBER YOU WERE GIVEN, OR RETURN TO THE ED IMMEDIATELY. Scripts Ibuprofen (IBUPROFEN) 600 Mg Tablet 600 MG PO TID PRN PRN for PAIN, #20 TAB 0 Refills Prov: YOBANI LEWIS APRN 05/03/21 Hydrocodone Bit/Acetaminophen (HYDROCODONE-APAP 5-325 ) 1 Each Tablet 1 TAB PO PRN Q6HRS PRN for SEVERE PAIN 7-10, #15 TAB 0 Refills Prov: YOBANI LEWIS APRN 05/03/21 Problem Qualifiers Primary Impression: Fracture of fifth metacarpal bone of left hand Encounter type: initial encounter Fracture type: closed Metacarpal location: shaft Fracture alignment: displaced Qualified Codes: S62.327A - Displaced fracture of shaft of fifth metacarpal bone, left hand, initial encounter for closed fracture YOBANI LEWIS APRN May 03, 2021 17:18 MELLISSA RICHARDSON DO May 06, 2021 03:53
[2021-05-03 17:20] VITALS: BP 116/66
== END 2021-05-03 17:24 | disposition home or self-care (01) ==
LOC: ER 15:29
DX: S62.307A Unspecified fracture of fifth metacarpal bone, left hand, initial encounter for closed fracture (principal); W21.89XA Striking against or struck by other sports equipment, initial encounter; Y93.67 Activity, basketball; Y92.89 Other specified places as the place of occurrence of the external cause; Y99.8 Other external cause status
CPT/HCPCS: 29125; 73130; 99283-25

== ENCOUNTER 2021-11-03 20:32 | Emergency (ER) | payer SELFPAY ==
[~2021-11-03] VITALS: Ht 190.5 cm; Wt 90.9 kg
[~2021-11-03 20:32] MED LIST changes: -CYCL-331 PO; +CYCL10TA19 PO; +HYDR-2155 PO
[2021-11-03 20:42] VITALS: BP 124/88
[2021-11-03] MEDS ORDERED: predniSONE 20 MG TABLET PO ONE (21:00)
[2021-11-03] MEDS ORDERED: diphenhydrAMINE HCL 25 MG CAPSULE PO ONE (21:00)
[2021-11-03] MEDS ORDERED: FAMOTIDINE 20 MG TABLET PO ONE (21:00)
--- NOTE | 2021-11-03 21:07 | PHYS DOC ---
Past History Past Medical History: No Pertinent History (SUZE VANESSA APRN) Past Surgical History: No Surgical History, Tonsillectomy (SUZE VANESSA APRN) Smoking: Greater than 1 pack/day Alcohol Use: Heavy Drug Use: Marijuana (SUZE VANESSA APRN) General Adult EDM: Chief Complaint: ALLERGIC REACTION HPI: HPI: Patient is a 26-year-old male that presents today with difficulty breathing, and rash on his left upper arm. 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 Patient states that he woke up and drove here for evaluation. Patient denies having any known allergies to any food, plants, or medications. Patient states he has had very little to drink today, and has not eaten any food as well. Patient states he does smoke cigarettes on a daily basis, and did smoke a blunt this morning before he left for work. (SUZE VANESSA APRN) Review of Systems: Review of Systems: Constitutional: Denies fever or chills Eyes: Denies change in visual acuity HENT: Throat swelling Respiratory: Denies cough or shortness of breath Cardiovascular: Denies chest pain or edema GI: Denies abdominal pain, nausea, vomiting, bloody stools or diarrhea : Denies dysuria Musculoskeletal: Denies back pain or joint pain Integument: Left upper arm rash Neurologic: Denies headache, focal weakness or sensory changes Endocrine: Denies polyuria or polydipsia Lymphatic: Denies swollen glands Psychiatric: Denies depression or anxiety (SUZE VANESSA APRN) Current Medications: Current Meds: Current Medications Medications (Trade) Dose Ordered Sig/Tegan Start Time Stop Time Status Last Admin Dose Admin Diphenhydramine HCl (Benadryl) 50 mg 1X ONCE 11/03/21 21:00 11/03/21 21:01 UNV Famotidine (Pepcid) 20 mg 1X ONCE 11/03/21 21:00 11/03/21 21:01 UNV Prednisone (Prednisone) 60 mg 1X ONCE 11/03/21 21:00 11/03/21 21:01 UNV (SUZE VANESSA APRN) Allergies: Allergies: Allergies Coded Allergies Type Severity Reaction Last Updated Verified No Known Drug Allergies 09/13/20 No (SUZE VANESSA APRN) Physical Exam: PE: Constitutional: Well developed, well nourished, no acute distress, non-toxic appearance. [] HENT: Normocephalic, atraumatic, bilateral external ears normal, oropharynx moist, nasal drainage noted, oropharynx is reddened no swelling, tonsils and uvula are within normal limits Eyes: PERRLA, EOMI, conjunctiva normal, no discharge. [] Neck: Normal range of motion, no tenderness, supple, no stridor. [] Cardiovascular:Heart rate regular rhythm, no murmur [] Lungs & Thorax: Bilateral breath sounds clear to auscultation [] Abdomen: Bowel sounds normal, soft, no tenderness, no masses, no pulsatile masses. [] Skin: uticartic rash noted on the left upper arm Back: No tenderness, no CVA tenderness. [] Extremities: No tenderness, no cyanosis, no clubbing, ROM intact, no edema. [] Neurologic: Alert and oriented X 3, normal motor function, normal sensory function, no focal deficits noted. [] Psychologic: Affect normal, judgement normal, mood normal. [] (SUZE VANESSA APRN) Current Patient Data: Vital Signs: Vital Signs Date Time Temp Pulse Resp B/P (MAP) Pulse Ox O2 Delivery O2 Flow Rate FiO2 11/03/21 20:42 98.5 63 18 124/88 (100) 98 Room Air (SUZE VANESSA APRN) EKG: EKG: [] (SUZE VANESSA APRN) Radiology/Procedures: Radiology/Procedures: [] (SUZE VANESSA APRN) Heart Score: C/O Chest Pain: N/A Risk Factors: Risk Factors: DM, Current or recent (<one month) smoker, HTN, HLP, family history of CAD, obesity. Risk Scores: Score 0 - 3: 2.5% MACE over next 6 weeks - Discharge Home Score 4 - 6: 20.3% MACE over next 6 weeks - Admit for Clinical Observation Score 7 - 10: 72.7% MACE over next 6 weeks - Early Invasive Strategies (SUZE VANESSA APRN) Course & Med Decision Making: Course & Med Decision Making Pertinent Labs and Imaging studies reviewed. (See chart for details) Talk with patient at length about eating balanced meals, to stop smoking, and to stop smoking marijuana. We will treat with oral medications for allergic reaction, patient has no airway compromise patient able to swallow p.o. fluid. 2124 reassessment of patient, patient reports that his itching is improved and he feels much better he does not have the sensation in his throat is closing. We will send patient home for follow-up with his primary care physician in the a.m. We will send Rx for prednisone to his pharmacy of choice and advised him to take that for the next 5 days. Patient can also take [id number] Benadryl and Pepcid for itching as well (SUZE VANESSA APRN) Dragon Disclaimer: Dragon Disclaimer: This electronic medical record was generated, in whole or in part, using a voice recognition dictation system. (SUZE VANESSA APRN) Departure Departure: Impression: Primary Impression: Allergic reaction Qualified Codes: T78.40XA - Allergy, unspecified, initial encounter Disposition: HOME / SELF CARE / HOMELESS Condition: STABLE Referrals: PCP,NO (PCP) JOE DE LEÓN MD Patient Instructions: Hives, [id number] Additional Instructions: [id number] Benadryl take every 6 hours as needed for allergic reaction Sjez-qeo-nsuskzs Pepcid take every 6 hours as needed for allergic reaction Prednisone 60 mg daily for 5 days Follow-up with Dr. 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 I was available for co nsultation as needed during the patient's visit in the emergency department. I agree with the clinical impression, plan, and disposition. (YOBANI LABOY DO) SUZE VANESSA APRN Nov 03, 2021 21:07 YOBANI LABOY DO Nov 04, 2021 01:26
[2021-11-03] MEDS ORDERED: PRED50TA PO (21:41)
== END 2021-11-03 21:47 | disposition home or self-care (01) ==
LOC: ER 20:32
DX: T78.40XA Allergy, unspecified, initial encounter (principal); Z87.891 Personal history of nicotine dependence; F10.20 Alcohol dependence, uncomplicated; X58.XXXA Exposure to other specified factors, initial encounter; Y90.9 Presence of alcohol in blood, level not specified
CPT/HCPCS: 99284; J7512; Q0163

== ENCOUNTER → 2022-04-26 | Emergency (ER) | payer SELFPAY ==
[~2022-04-26] VITALS: Ht 190.5 cm; Wt 90.9 kg
[~2022-04-26] MED LIST changes: +IBUP800T19 PO; +KETOROLAC 60 MG/2 ML VIAL. IM ONE; +ORPH-16 PO; +ORPHENADRINE CITRATE 60 MG/2 ML VIAL. IM ONE; +PRED50TA PO
[2022-04-26 08:01] VITALS: BP 125/79
--- NOTE | 2022-04-26 08:10 | PHYS DOC ---
Past History Past Medical History: No Pertinent History Past Surgical History: No Surgical History, Tonsillectomy Smoking: Greater than 1 pack/day Alcohol Use: Heavy Drug Use: Marijuana General Adult EDM: Chief Complaint: LOWER BACK PAIN OR INJURY HPI: HPI: Patient is a 27 year old male who is here with report of right low back pain, with radiation of pain down his right thigh. He reports he feels some tingling in his foot. He denies any numbness, paralysis or motor weakness. He denies abdominal pain or urinary symptoms. He denies incontinence of bowel or bladder function. 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 He denies any heavy lifting or direct trauma. 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 He does not usually have back pain. He denies fevers or chills. He denies cough, dyspnea, chest pain symptoms. No history of IV drug use. No known previous history of back injury. Review of Systems: Review of Systems: Constitutional: Denies fever or chills Respiratory: Denies cough or shortness of breath Cardiovascular: Denies chest pain or edema GI: Denies abdominal pain, nausea, vomiting, or diarrhea. No stool incontinence. : Denies any urinary symptoms. Denies urine incontinence. Musculoskeletal: Right sided low back pain. Integument: Denies rash Neurologic: Denies headache, focal weakness or sensory changes, denies numbness, reports mild tingling of his right foot. Denies motor weakness. Denies dizziness or syncope. Psychiatric: Denies depression or anxiety Allergies: Allergies: Allergies Coded Allergies Type Severity Reaction Last Updated Verified No Known Drug Allergies 09/13/20 No Physical Exam: PE: Constitutional: Well developed, well nourished, no acute distress, non-toxic appearance. [] HENT: Normocephalic, atraumatic Eyes: Sclera are anicteric, conjunctive are normal Neck: Normal range of motion, no tenderness, supple, no stridor. [] Cardiovascular:Heart rate regular rhythm, +2 radial and +2 posterior tibial pulses bilaterally Lungs & Thorax: Bilateral breath sounds clear to auscultation [] Abdomen: Abdomen is soft, nondistended, nontender to palpation. No CVA tenderness. No palpable pulsatile mass. No flank abdominal ecchymoses. Skin: Warm, dry, no erythema, no rash. [] Back: No deformity. No midline step-offs. Diffuse mid line and right paraspinal lumbar tenderness to palpation. No external evidence of trauma, no ecchymoses or contusions, no abrasions, no erythema. No CVA tenderness. Full range of motion. Extremities: No tenderness, no cyanosis, no clubbing, ROM intact, no edema. [] Neurologic: Alert and oriented X 3, normal motor function, normal sensory function, no focal deficits noted. 5 out of 5 motor strength all 4 extremities. Gait is antalgic but steady, no gait ataxia. DTR 2/4 bilateral lower extremities. Sensation is grossly intact. No foot drop. Psychologic: Affect normal, judgement normal, mood normal. [] EKG: EKG: [] Radiology/Procedures: Radiology/Procedures: IMAGING REPORT Signed PATIENT: SEDRICK SÁNCHEZOUNT: [id number] : 1995 LOCATION: ER AGE: 27 SEX: M EXAM STATUS: REG ER ORD. PHYSICIAN: XANDER LOGAN DO REASON: low back pain, radiculopathy PROCEDURE: CT LUMBAR SPINE WO CONTRAST INDICATION: Reason: low back pain, radiculopathy / Spl. Instructions: / History: . COMPARISON: None. TECHNIQUE: Axial CT images obtained through the lumbar spine. One or more of the following individualized dose reduction techniques were utilized for this examination: 1. Automated exposure control; 2. Adjustment of the mA and/or kV according to patient size; 3. Use of iterative reconstruction technique. FINDINGS: No significant malalignment. No acute fracture. Mild degenerative changes the spine with early facet hypertrophy as well as some small disc protrusions. This includes at L3-4. There is a mild broad-based po sterior disc protrusion as well as ligamentum flavum and facet hypertrophy. Central canal and neural foramina are patent. At L4-5 there is a mild broad- based posterior disc protrusion with ligamentum flavum and facet hypertrophy. Mild mass effect on the anterior aspect of the thecal sac. Ligamentum flavum and facet hypertrophy. Mild trefoil narrowing of the central canal. Mild right neural foraminal stenosis. L5-S1 there is osteophyte formation at the vertebral body endplates as well as a posterior disc protrusion with facet hypertrophy. Mild mass effect on the anterior aspect of the thecal sac. Mild bilateral neural foraminal stenosis. IMPRESSION: * No acute fracture or dislocation. * Mild degenerative changes the lumbar spine with mild disc protrusions and osteophyte formation as well as facet hypertrophy. Electronically signed by: Leny Vargas MD (04/26/2022 8:49 AM) [id number] DICTATED AND SIGNED BY: LENY VARGAS MD DATE: 04/26/22 0840 CC: XANDER LOGAN DO; PCP,NO ~ Heart Score: C/O Chest Pain: No Risk Factors: Risk Factors: DM, Current or recent (<one month) smoker, HTN, HLP, family history of CAD, obesity. Risk Scores: Score 0 - 3: 2.5% MACE over next 6 weeks - Discharge Home Score 4 - 6: 20.3% MACE over next 6 weeks - Admit for Clinical Observation Score 7 - 10: 72.7% MACE over next 6 weeks - Early Invasive Strategies Course & Med Decision Making: Course & Med Decision Making Pertinent Labs and Imaging studies reviewed. (See chart for details) This patient is given IM Toradol and IM Norflex. He reports some improvement of pain, he is able to ambulate without significant difficulty. He has a nonfocal neurologic exam, no red flag signs or symptoms. CT imaging does demonstrate some disc disease, no pathologic fracture. I discussed the findings, differential diagnosis and plan of care with the patient. I explained that he must follow-up with a primary care physician, and if symptoms persist, he may need an outpatient MRI. Home care instructions provided. Return precautions are given. He is given a work note for the next 2 days. He verbalizes understanding and is comfortable with the plan of care. Dragon Disclaimer: Aubrie Disclaimer: This electronic medical record was generated, in whole or in part, using a voice recognition dictation system. Departure Departure: Impression: Primary Impression: Low back pain Qualified Codes: M54.50 - Low back pain, unspecified Additional Impression: Lumbar pain with radiation down right leg Disposition: HOME / SELF CARE / HOMELESS Condition: STABLE Referrals: PCP,NO (PCP) Patient Instructions: Back Exercises, Back Pain, Adult, Lumbosacral Radiculopathy Additional Instructions: Use the medication as needed/as directed. You may alternate ice and heat, perform gentle stretching. Avoid any heavy lifting or strenuous activity. Return to the ER for severe abdominal pain, if you lose control of your bowel or bladder function, if you experience paralysis or complete motor weakness or for any other concerns. Please contact your primary care physician for follow-up. If your symptoms persist, you may need an outpatient, nonemergent MRI of your spine. Scripts Orphenadrine Citrate (ORPHENADRINE CITRATE) 100 Mg Tablet.er 1 TAB PO BID for muscle spasm, #20 TAB 1 Refill Prov: XANDER LOGAN DO 04/26/22 Ibuprofen (IBUPROFEN) 800 Mg Tablet 1 TAB PO TID for pain, #20 TAB 1 Refill Prov: XANDER LOGAN DO 04/26/22 Hydrocodone Bit/Acetaminophen (HYDROCODONE-APAP 5-325 ) 1 Each Tablet 1 TAB PO PRN Q6HRS PRN for PAIN, #15 TAB 0 Refills Prov: XANDER LOGAN DO 04/26/22 Prednisone (PREDNISONE) 50 Mg Tablet 1 TAB PO DAILY for inflammation for 5 Days, #5 TAB Prov: XANDER LOGAN DO 04/26/22 XANDER LOGAN DO April 26, 2022 08:10
--- NOTE | 2022-04-26 08:52 | RAD ---
INDICATION: Reason: low back pain, radiculopathy / Spl. Instructions: / History: . COMPARISON: None. TECHNIQUE: Axial CT images obtained through the lumbar spine. One or more of the following individualized dose reduction techniques were utilized for this examinat ion: 1. Automated exposure control; 2. Adjustment of the mA and/or kV according to patient size; 3 . Use of iterative reconstruction technique. FINDINGS: No significant malalignment. No acute fracture. Mild degenerative changes the spine with early facet hypertrophy as well as some small disc protrusio ns. This includes at L3-4. There is a mild broad-based posterior disc protrusion as well as ligamentu m flavum and facet hypertrophy. Central canal and neural foramina are patent. At L4-5 there is a mild broad-based posterior disc protrusion with ligamentum flavum and facet hypertrophy. Mild mass effect on the anterior aspect of the thecal sac. Ligamentum flavum and facet hypertrophy. Mild trefoil narr owing of the central canal. Mild right neural foraminal stenosis. L5-S1 there is osteophyte formation at the vertebral body endplates as well as a posterior disc protrusion with facet hypertrophy. Mild mass effect on the anterior aspect of the thecal sac. Mild bilateral neural foraminal stenosis. IMPRESSION: * No acute fracture or dislocation. * Mild degenerative changes the lumbar spine with mild disc protrusions and osteophyte formation as well as facet hypertrophy. Electronically signed by: Arnold Vargas MD (04/26/2022 8:49 AM) [id number]
[2022-04-26 09:19] LABS: BACTERIA,URINE 0 /HPF (0-FEW); CLARITY,URINE CLEAR; COLOR,URINE YELLOW; GLUCOSE,URINE NEG (NEG); NITRITE,URINE NEG (NEG); RBC,URINE OCC /HPF (0-2); SQUAMOUS EPITHELIAL CELL,UR OCC /LPF; UROBILINOGEN,URINE 0.2 mg/dL (0.2 mg/dL); WBC,URINE OCC /HPF (0-4)
== END | disposition home or self-care (01) ==
LOC: ER 07:48
DX: M54.59 Other low back pain (principal); R20.2 Paresthesia of skin; F17.200 Nicotine dependence, unspecified, uncomplicated; F10.20 Alcohol dependence, uncomplicated; Y90.9 Presence of alcohol in blood, level not specified
CPT/HCPCS: 72131; 81001; 96372; 99284; J1885; J2360